=== PATIENT | male | born 1990 | race Two or more races ===

== ENCOUNTER 2018-07-05 08:40 | Emergency (ER) | payer MEDICAID, OTHER ==
[~2018-07-05] VITALS: Ht 177.8 cm; Wt 89.9 kg
[2018-07-05 08:46] VITALS: BP 142/93
[2018-07-05] MEDS ORDERED: AZITHROMYCIN 250 MG TABLET ONE (09:18)
[2018-07-05] MEDS ORDERED: CEFTRIAXONE 250 MG ONE (09:18)
[2018-07-05] MEDS ORDERED: AZITHROMYCIN 250 MG TABLET PO/NG ONE (09:30)
[2018-07-05] MEDS ORDERED: CEFTRIAXONE 250 MG IM ONE (09:30)
[2018-07-05 09:50] LABS: CULTURE INDICATED? YES; MICROSCOPIC INDICATED
== END 2018-07-05 10:21 | disposition home or self-care (01) ==
LOC: ED 10:15
DX: N30.00 Acute cystitis without hematuria (principal); N34.2 Other urethritis; Z90.89 Acquired absence of other organs
CPT/HCPCS: 81001; 87086; 87491; 87591; 96372; 99283; J0696